=== PATIENT | male | born 1945 | race Caucasian/White ===

== ENCOUNTER → 2020-10-30 | Outpatient (CLI) | payer MEDICARE, OTHER ==
[~2020-10-30] MED LIST: ASPI81TA45 PO; CELE200C PO; HYDR-3237 PO; INDA2.5T PO; LOSA50TA14 PO; MELO15TA24 PO; METO-99 PO; MINO10TA PO; POTA10TA12 PO; TIZA4TAB2 PO
[2020-10-30 15:12] LABS: BASOPHILS % (AUTO) 1 % (0-1); EOSINOPHILS % (AUTO) 4 % (1-7); LYMPHOCYTES % (AUTO) 27 % (22-44); MEAN CORPUSCULAR HGB CONC 34.1 g/dL (33.2-36.2); MEAN PLATELET VOLUME 9.8 fL (7.4-10.4); MONOCYTES % (AUTO) 9 % (2-9); NEUTROPHILS % (AUTO) 59 % (42-75); PLATELET COUNT 182 x10^3/uL (130-400); RED BLOOD COUNT 4.85 x10^6/uL (4.38-5.82); RED CELL DISTRIBUTION WIDTH 14.1 % (9.4-14.8)
[2020-10-30 15:16] LABS: MD NO
[2020-10-30 15:21] LABS: ANION GAP 8 mmol/L (5-15); CHLORIDE 105 mmol/L (98-107)
[2020-10-30 15:24] LABS: ALANINE AMINOTRANSFERASE 32 U/L (12-78); ALKALINE PHOSPHATASE 60 U/L (45-117); BILIRUBIN,TOTAL 0.7 mg/dL (0.2-1.0); CREATININE 0.78 mg/dL (0.7-1.3); TOTAL PROTEIN 7.7 g/dL (6.4-8.2)
== END | disposition home or self-care (01) ==
LOC: STAR 13:18
PROVIDERS: ATTEND Neurological Surgery
DX: Z01.818 Encounter for other preprocedural examination (principal); G56.22 Lesion of ulnar nerve, left upper limb; R00.1 Bradycardia, unspecified; I45.10 Unspecified right bundle-branch block; R94.31 Abnormal electrocardiogram [ECG] [EKG]; Z20.822 Contact with and (suspected) exposure to COVID-19
CPT/HCPCS: 36415; 80053; 85025; 93005; U0003

== ENCOUNTER 2020-11-04 06:54 | Day surgery (SDC) | payer MEDICARE, OTHER ==
[~2020-11-04] VITALS: Ht 177.8 cm; Wt 125.0 kg
[2020-11-04 08:06] VITALS: BP 166/77
[2020-11-04] MEDS ORDERED: CHLORHEXIDINE 15 ML UDC PO ONE (08:30)
[2020-11-04] MEDS ORDERED: LACTATED RINGERS 1,000 ML IV SCH (08:30)
[2020-11-04] MEDS ORDERED: LIDOCAINE-MPF 1%, 2ML INFIL ONE (08:30)
[2020-11-04] MEDS ORDERED: BUPIVACAINE/PF 0.5% ONE (09:17)
[2020-11-04] MEDS ORDERED: BACITRACIN 50,000 UNIT ONE (09:17)
[2020-11-04] MEDS ORDERED: EPINEPHRINE 1 MG/ML, 1ML ONE (09:17)
[2020-11-04] MEDS ORDERED: PROPOFOL 50 ML ONE (09:46)
[2020-11-04] MEDS ORDERED: FENTANYL PF 250 MCG/5ML ONE (09:46)
[2020-11-04] MEDS ORDERED: MIDAZOLAM 1 MG/ML, 2ML ONE (09:46)
[2020-11-04] MEDS ORDERED: DEXAMETHASONE 4 MG/ML, 1ML ONE (10:33)
[2020-11-04] MEDS ORDERED: BUPIVACAINE/PF-EPI 0.5% 1:200K INFIL ONE (10:50)
[2020-11-04] MEDS ORDERED: BACITRACIN 50,000 UNIT IM ONE (10:50)
[2020-11-04] MEDS ORDERED: ONDANSETRON 2MG/ML, 2ML ONE (11:12)
[2020-11-04] MEDS ORDERED: PROPOFOL 10 MG/ML, 20ML ONE (11:12)
[2020-11-04] MEDS ORDERED: CEFAZOLIN 1,000 MG ONE ×2 (11:12)
== END 2020-11-04 13:15 | disposition home or self-care (01) ==
LOC: OR 06:54
PROVIDERS: ATTEND Neurological Surgery
DX: G56.22 Lesion of ulnar nerve, left upper limb (principal); I10 Essential (primary) hypertension; M19.90 Unspecified osteoarthritis, unspecified site; Z96.653 Presence of artificial knee joint, bilateral; Z98.890 Other specified postprocedural states; Z79.82 Long term (current) use of aspirin; Z79.899 Other long term (current) drug therapy; Z87.891 Personal history of nicotine dependence; Z88.8 Allergy status to other drugs, medicaments and biological substances; Z72.89 Other problems related to lifestyle
CPT/HCPCS: 64718; J0171; J0690; J1100; J2250; J2405; J2704; J3010; J7120